=== PATIENT | female | born 1990 | race African-American/Black ===

== ENCOUNTER 2022-02-09 21:26 | Emergency (ER) | payer MEDICARE ==
[~2022-02-09] VITALS: Ht 172.7 cm; Wt 97.5 kg
[2022-02-09] MEDS ORDERED: ONDANSETRON HCL INJ 2MG/ML 2ML 2 MG/ML VIAL IV STA (21:39)
== END 2022-02-10 05:00 | disposition home or self-care (01) ==
LOC: ER 21:32
DX: F10.129 Alcohol abuse with intoxication, unspecified (principal)
CPT/HCPCS: 99283